=== PATIENT | female | born 1975 | race Caucasian/White ===

== ENCOUNTER 2017-02-14 08:46 | Emergency (ER) | payer MEDICAID, OTHER ==
[2017-02-14 08:49] VITALS: BMI 26.9
[2017-02-14 08:51] VITALS: TEMP 98.4
--- NOTE | 2017-02-14 09:18 | ED PDOC ---
HPI: SOB/CHF/COPD Time Seen by Provider: 02/14/17 09:04 Chief Complaint (Nursing): Respiratory Distress Chief Complaint (Provider): difficulty breathing History Per: Patient History/Exam Limitations: no limitations Onset/Duration Of Symptoms: Days, Persistent Current Symptoms Are (Timing): Still Present Associated Symptoms: Chest Pain. denies: Leg/Calf Pain, Ankle/Leg Swelling Additional Complaint(s): 41yo female with past medical history of diabetes, asthma, presents to ED with complaints shortness of breath for the past 1 week, worsening today. She states she has been taking her nebulizer treatment and ventolin pump alternating with no relief of her symptoms. She also reports episodes of vomiting and also dizziness after coughing. She denies any headache, fever, chills, dysuria. No other complaints. Of note, patient had an episode of asthma exacerbation 3 weeks ago for which she took antibiotics and steroids which provided minor relief. Past Medical History Reviewed: Historical Data, Nursing Documentation, Vital Signs Vital Signs: Last Vital Signs Temp 98.4 F 02/14/17 08:49 Pulse 103 H 02/14/17 12:05 Resp 20 02/14/17 12:05 BP 124/80 02/14/17 12:05 Pulse Ox 96 02/14/17 12:05 - Medical History PMH: Anemia, Asthma, Bipolar Disorder, Bronchitis, Depression, Diabetes, Hypercholesterolemia Denies: Chronic Kidney Disease - Surgical History Surgical History: CABG, ( x3 in . with tubal ligation 1997. ) - Family History Family History: States: Diabetes, Hypertension - Home Medications Home Medications: Ambulatory Orders Medication Instructions Recorded Albuterol 0.5% [Albuterol 0.5% 2.5 mg IH Q6 PRN #1 packet 01/16/16 Inhal Sary (2.5 mg/0.5 ml) UD] Albuterol HFA [Ventolin HFA 90 1 puff IH ASDIR #1 unit 04/14/16 mcg/actuation (8 g)] - Allergies Allergies/Adverse Reactions: Allergies Allergy/AdvReac Type Severity Reaction Status Date / Time banana Allergy RASH Verified 02/14/17 09:18 lamotrigine [From Lamictal] Allergy RASH Verified 02/14/17 09:18 Review of Systems ROS Statement: Except As Marked, All Systems Reviewed And Found Negative Constitutional: Negative for: Fever, Chills Cardiovascular: Positive for: Chest Pain (mid-sternal) Respiratory: Positive for: Cough, Shortness of Breath Gastrointestinal: Positive for: Vomiting Neurological: Negative for: Headache Physical Exam - Reviewed Nursing Documentation Reviewed: Yes Vital Signs Reviewed: Yes - Physical Exam Appears: Positive for: Non-toxic, Uncomfortable Head Exam: Positive for: ATRAUMATIC, NORMAL INSPECTION, NORMOCEPHALIC Skin: Positive for: Normal Color Eye Exam: Positive for: Normal appearance ENT: Positive for: Normal ENT Inspection Neck: Positive for: Supple Cardiovascular/Chest: Positive for: Regular Rate, Rhythm, Tachycardia Respiratory: Positive for: Normal Breath Sounds. Negative for: Wheezing Gastrointestinal/Abdominal: Positive for: Soft. Negative for: Tenderness Extremity: Positive for: Normal ROM. Negative for: Pedal Edema Neurologic/Psych: Positive for: Alert, Oriented - Laboratory Results Result Diagrams: 02/14/17 09:27 12 09:27 - ECG O2 Sat by Pulse Oximetry: 97 (RA) Pulse Ox Interpretation: Normal - Radiology X-Ray: Read By Radiologist X-Ray Interpretation: No Acute Disease - Progress Re-evaluation Time: 12:17 Condition: Re-examined, Improved, Improving,but remains with symptoms Medical Decision Making Medical Decision Making: Time: 916 Impression: Asthma exacerbation Plan: -- Labs -- EKG -- Chest x-ray -- Rapid Flu Reassess Scribe Attestation: Documented by Noemi Nixon acting as a scribe for Valerie Torre MD. Provider Attestation: All medical record entries made by the Scribe were at my direction and personally dictated by me. I have reviewed the chart and agree that the record accurately reflects my personal performance of the history, physical exam, medical decision making, and the department course for this patient. I have also personally directed, reviewed, and agree with the discharge instructions and disposition. 12.00 patient is feeling better after hydration. work up is negative for acute pathology. Will discharge. Disposition - Clinical Impression Clinical Impression: Hyperglycemia due to type 2 diabetes mellitus - Patient ED Disposition Is Patient to be Admitted: No Doctor Will See Patient In The: Office Counseled Patient/Family Regarding: Diagnosis, Need For Followup, Rx Given - Disposition Referrals: [facility] [Outside] [facility] [Outside] Disposition: Routine/Home Disposition Time: 12:18 Condition: STABLE Instructions: Diabetic Hyperglycemia (ED) Forms: [facility] ([place]) - POA Present On Arrival: None
[2017-02-14 09:34] LABS: ABG ALLEN TEST YES; ARTERIAL BLOOD GAS HCO3 25.7 mmol/L (21-28); ARTERIAL BLOOD GAS PH 7.44 (7.35-7.45); ARTERIAL BLOOD GAS PO2 76 mm/Hg (80-100)
[2017-02-14 09:38] LABS: EOS # 0.7 K/uL (0.0-0.7); MEAN PLATELET VOLUME 8.8 fl (7.2-11.7)
[2017-02-14 09:57] LABS: BASO # 0.1 K/uL (0.0-0.2); BASO % 0.8 % (0.0-2.0); EOS % 7.9 % (0.0-4.0); HEMATOCRIT 39.6 % (34.0-47.0); LYMPH # 1.5 K/uL (1.0-4.3); MEAN CELL VOLUME 77.3 fl (81.0-99.0); MEAN CORPUSCULAR HEMOGLOBIN 25.6 pg (27.0-31.0); MEAN CORPUSCULAR HGB CONC 33.1 g/dL (33.0-37.0); MONO # 0.6 K/uL (0.0-0.8); MONO % 6.3 % (0.0-10.0); NEUT # 6.4 K/uL (1.8-7.0); NRBC % 0.2 % (0.0-0.0); RED CELL DISTRIBUTION WIDTH 13.9 % (11.5-14.5); WHITE BLOOD COUNT 9.3 K/uL (4.8-10.8)
[2017-02-14 11:11] LABS: ALB/GLOB RATIO 1.2 (1.0-2.1); ALKALINE PHOSPHATASE 117 U/L (38-126); ALT/SGPT 26 U/L (9-52); AST/SGOT 18 U/L (14-36); BILIRUBIN,TOTAL 0.5 mg/dl (0.2-1.3); BLOOD UREA NITROGEN 14 mg/dl (7-17); CALCIUM 9.5 mg/dL (8.4-10.2); CARBON DIOXIDE 21 mmol/L (22-30); CHLORIDE 101 mmol/L (98-107); GFR AFRICAN-AMERICAN > 60; GLUCOSE,RANDOM 435 mg/dL (65-105); POTASSIUM 4.2 MMOL/L (3.6-5.0); SODIUM 135 mmol/l (132-148); TOTAL PROTEIN 7.5 G/DL (6.3-8.2)
--- NOTE | 2017-02-14 11:34 | RAD ---
HISTORY: dyspnea COMPARISON: No prior. TECHNIQUE: Chest PA and lateral FINDINGS: LUNGS: No active pulmonary disease. PLEURA: No significant pleural effusion identified. No pneumothorax apparent. CARDIOVASCULAR: Normal. OSSEOUS STRUCTURES: No significant abnormalities. VISUALIZED UPPER ABDOMEN: Normal. OTHER FINDINGS: None. IMPRESSION: No active disease.
[2017-02-14 12:06] VITALS: BP 124/80; PULSE 103; RESP 20
[2017-02-14 12:21] VITALS: O2SAT 97
--- NOTE | 2017-02-17 17:39 | CARD ---
APPROVED REPORT EKG Measurement Heart [id number] <Conclusion> Sinus tachycardia Otherwise normal ECG
== END 2017-02-14 12:45 | disposition home or self-care (01) ==
LOC: H.ER 08:46
DX: E11.65 Type 2 diabetes mellitus with hyperglycemia (principal); E78.00 Pure hypercholesterolemia, unspecified; F31.9 Bipolar disorder, unspecified; J44.9 Chronic obstructive pulmonary disease, unspecified; J45.901 Unspecified asthma with (acute) exacerbation; Z95.1 Presence of aortocoronary bypass graft

== ENCOUNTER 2017-02-28 09:12 | Emergency (ER) | payer OTHER ==
[2017-02-28 09:38] VITALS: BMI 25.5
[2017-02-28] MEDS ORDERED: Albuterol-Ipratrop 3 mg / 0.5 (3 ml) UD INH STA ×3 (10:12)
[2017-02-28] MEDS ORDERED: Albuterol-Ipratrop 3 mg / 0.5 (3 ml) UD ONE (10:21)
--- NOTE | 2017-02-28 11:23 | ED PDOC ---
HPI: SOB/CHF/COPD Time Seen by Provider: 02/28/17 09:48 Chief Complaint (Nursing): Respiratory Distress Chief Complaint (Provider): Cough, congestion, wheeze History Per: Patient History/Exam Limitations: no limitations Onset/Duration Of Symptoms: Days Current Symptoms Are (Timing): Still Present Associated Symptoms: denies: Fever, Chills, Chest Pain Additional Complaint(s): 41yo female with history of asthma, presents to ED with complaints of cough, congestion and wheezing for the past 1 week. Patient states she has been using her Albuterol nebulizer at home but has ran out of her inhaler. She denies any associated fevers and chest pain. Patient states she has mild asthma and does not have asthma attacks except occasionally in the winter. She has been admitted once before for Bronchitis but denies any ICU admission. Patient denies any other complaints. Past Medical History Reviewed: Historical Data, Nursing Documentation, Vital Signs Vital Signs: Last Vital Signs Temp 98.5 F 02/28/17 09:38 Pulse 97 H 02/28/17 11:25 Resp 20 02/28/17 09:38 BP 154/88 H 02/28/17 09:38 Pulse Ox 97 02/28/17 11:25 - Medical History PMH: Anemia, Asthma, Bipolar Disorder, Bronchitis, Depression, Diabetes, Hypercholesterolemia Denies: Chronic Kidney Disease - Surgical History Surgical History: ( x3 in . with tubal ligation 1997. ) - Family History Family History: States: Diabetes, Hypertension - Social History Current smoker - smoking cessation education provided: No Ex-Smoker (has not smoked in the last 12 months): No Alcohol: None Drugs: Denies - Home Medications Home Medications: Ambulatory Orders Medication Instructions Recorded Albuterol 0.5% [Albuterol 0.5% 2.5 mg IH Q6 PRN #1 packet 02/28/17 Inhal Sary (2.5 mg/0.5 ml) UD] Albuterol HFA [Ventolin HFA 90 1 puff IH ASDIR #1 unit 02/28/17 mcg/actuation (8 g)] Fluticasone/Salmeterol 250/50 1 dsk IH BID #1 inh 02/28/17 [Advair Diskus] Promethazine/Codeine 5 ml PO Q6 PRN #50 ml 02/28/17 [Phenergan/Codeine Oral Syrup] predniSONE [predniSONE Tab] 60 mg PO DAILY 5 Days tab 02/28/17 - Allergies Allergies/Adverse Reactions: Allergies Allergy/AdvReac Type Severity Reaction Status Date / Time banana Allergy RASH Verified 02/14/17 09:18 lamotrigine [From Lamictal] Allergy RASH Verified 02/14/17 09:18 Review of Systems ROS Statement: Except As Marked, All Systems Reviewed And Found Negative Constitutional: Negative for: Fever ENT: Positive for: Nose Congestion Cardiovascular: Negative for: Chest Pain Respiratory: Positive for: Cough, Shortness of Breath, Wheezing Physical Exam - Reviewed Nursing Documentation Reviewed: Yes Vital Signs Reviewed: Yes - Physical Exam Appears: Positive for: Non-toxic, No Acute Distress Head Exam: Positive for: ATRAUMATIC, NORMAL INSPECTION, NORMOCEPHALIC Skin: Positive for: Normal Color Eye Exam: Positive for: EOMI, PERRL Neck: Positive for: Supple Cardiovascular/Chest: Positive for: Regular Rate, Rhythm. Negative for: Murmur Respiratory: Positive for: Normal Breath Sounds. Negative for: Wheezing, Respiratory Distress Gastrointestinal/Abdominal: Positive for: Normal Exam, Soft. Negative for: Tenderness Extremity: Positive for: Normal ROM. Negative for: Pedal Edema, Deformity, Swelling Neurologic/Psych: Positive for: Alert, Oriented - ECG ECG: Positive for: Interpreted By Me, Viewed By Me ECG Rhythm: Positive for: Normal QRS, Normal ST Segment, Sinus Rhythm. Negative for: ST/T Changes Rate: 97 O2 Sat by Pulse Oximetry: 97 (RA) Pulse Ox Interpretation: Normal - Progress Re-evaluation Time: 13:00 Condition: Re-examined, Improved Nebulizer Treatments/Peak Flow - Duonebs Number of Bronchodilator Doses given?: 3 - Steroid Treatment Steroid: IV - Clinical Response Clinical Response: Improved Medical Decision Making Medical Decision Making: Impression: Asthma exacerbation Plan: -- EKG -- Duoneb x 3 -- Solumedrol 125 mg IVP Reassess Scribe Attestation: Documented by Noemi Nixon acting as a scribe for Florin Jasso MD. Provider Attestation: All medical record entries made by the Scribe were at my direction and personally dictated by me. I have reviewed the chart and agree that the record accurately reflects my personal performance of the history, physical exam, medical decision making, and the department course for this patient. I have also personally directed, reviewed, and agree with the discharge instructions and disposition. Disposition - Clinical Impression Clinical Impression: Asthma exacerbation - Patient ED Disposition Is Patient to be Admitted: No Doctor Will See Patient In The: Office Counseled Patient/Family Regarding: Studies Performed, Diagnosis, Need For Followup - Disposition Referrals: [facility] [Outside] Disposition: Routine/Home Disposition Time: 13:19 Condition: GOOD Additional Instructions: Take your medications as instructed. Follow up with your PCP in 2-3 days. Prescriptions: Albuterol 0.5% [Albuterol 0.5% Inhal Sary (2.5 mg/0.5 ml) UD] 2.5 mg IH Q6 PRN # 1 packet PRN Reason: Shortness Of Breath Albuterol HFA [Ventolin HFA 90 mcg/actuation (8 g)] 1 puff IH ASDIR #1 unit Fluticasone/Salmeterol 250/50 [Advair Diskus] 1 dsk IH BID #1 inh predniSONE [predniSONE Tab] 60 mg PO DAILY 5 Days tab Promethazine/Codeine [Phenergan/Codeine Oral Syrup] 5 ml PO Q6 PRN #50 ml PRN Reason: Cough Instructions: Asthma (ED)
[2017-02-28 13:28] VITALS: BP 125/78; PULSE 78; RESP 17; TEMP 97; O2SAT 98
--- NOTE | 2017-03-03 09:18 | CARD ---
APPROVED REPORT EKG Measurement Heart [id number] <Conclusion> Normal sinus rhythm Normal ECG
== END 2017-02-28 13:35 | disposition home or self-care (01) ==
LOC: H.ER 09:12
DX: J45.901 Unspecified asthma with (acute) exacerbation (principal); E11.9 Type 2 diabetes mellitus without complications; E78.00 Pure hypercholesterolemia, unspecified; F31.9 Bipolar disorder, unspecified; J44.9 Chronic obstructive pulmonary disease, unspecified; Z87.891 Personal history of nicotine dependence
CPT/HCPCS: 81025; 94150; 94640; 96374; 99282; J2930

== ENCOUNTER 2017-03-07 12:07 | Emergency (ER) | payer OTHER ==
[2017-03-07 12:08] VITALS: BMI 25.5
[2017-03-07 12:13] VITALS: BP 127/80; PULSE 113; TEMP 97; O2SAT 99
[2017-03-07 12:21] VITALS: RESP 18
[2017-03-07] MEDS ORDERED: Naproxen 500 MG TAB PO ONE (12:32)
--- NOTE | 2017-03-07 12:39 | ED PDOC ---
HPI: General Adult Time Seen by Provider: 03/07/17 12:24 Chief Complaint (Nursing): Dental Pain History Per: Patient History/Exam Limitations: no limitations Onset/Duration Of Symptoms: Days (x 2) Current Symptoms Are (Timing): Still Present Additional Complaint(s): L[place] is a 41 year old female who presents to the emergency department complaining of left sided facial pain associated with nasal congestion. Reports pain worse when bending neck forward. Further states for the past 2 weeks, she treated her "bronchitis" with albuterol treatments. Denies trauma, fever, numbness, and weakness. PMD: No Family Provider Past Medical History Reviewed: Historical Data, Nursing Documentation, Vital Signs Vital Signs: Last Vital Signs Temp 97 F L 03/07/17 12:12 Pulse 113 H 03/07/17 12:12 Resp 18 03/07/17 12:19 BP 127/80 03/07/17 12:19 Pulse Ox 99 03/07/17 12:49 - Medical History PMH: Anemia, Asthma, Bipolar Disorder, Bronchitis, Depression, Diabetes, Hypercholesterolemia Denies: Chronic Kidney Disease - Surgical History Surgical History: CABG, ( x3 in . with tubal ligation 1997. ) - Family History Family History: States: Diabetes, Hypertension - Home Medications Home Medications: Ambulatory Orders Medication Instructions Recorded Albuterol 0.5% [Albuterol 0.5% 2.5 mg IH Q6 PRN #1 packet 02/28/17 Inhal Sary (2.5 mg/0.5 ml) UD] Albuterol HFA [Ventolin HFA 90 1 puff IH ASDIR #1 unit 02/28/17 mcg/actuation (8 g)] Fluticasone/Salmeterol 250/50 1 dsk IH BID #1 inh 02/28/17 [Advair Diskus] Promethazine/Codeine 5 ml PO Q6 PRN #50 ml 02/28/17 [Phenergan/Codeine Oral Syrup] predniSONE [predniSONE Tab] 60 mg PO DAILY 5 Days tab 02/28/17 Amoxicillin/Clavulanate [Augmentin 1 tab PO Q8 #30 tab 03/07/17 500 MG-125 MG] Fluticasone Propionate [Flonase] 2 spr NS DAILY PRN #1 bottle 03/07/17 Pseudoephedrine HCl [Sudafed] 1 - 2 tab PO Q8 PRN #30 tablet 03/07/17 - Allergies Allergies/Adverse Reactions: Allergies Allergy/AdvReac Type Severity Reaction Status Date / Time banana Allergy RASH Verified 03/07/17 12:19 lamotrigine [From Lamictal] Allergy RASH Verified 03/07/17 12:19 Review of Systems ROS Statement: Except As Marked, All Systems Reviewed And Found Negative Constitutional: Negative for: Fever, Weakness Neurological: Negative for: Numbness Physical Exam - Reviewed Nursing Documentation Reviewed: Yes Vital Signs Reviewed: Yes - Physical Exam Appears: Positive for: No Acute Distress Head Exam: Positive for: ATRAUMATIC, NORMAL INSPECTION, NORMOCEPHALIC ENT: Positive for: Other (Left sided maxillary tednerness without swelling, dentation is normal, no gingival tenderness). Negative for: Pharyngeal Erythema Respiratory: Positive for: Normal Breath Sounds (Lungs clear to auscultation bilaterally) Neurologic/Psych: Negative for: Aphasia, Facial Droop - ECG O2 Sat by Pulse Oximetry: 99 (RA) Pulse Ox Interpretation: Normal Medical Decision Making Medical Decision Making: Time: 12:30 Plan: - Naproxen 500 mg PO Upon provider evaluation patient is medically stable, and requires no further treatment in the ED at this time. Patient will be discharged with Rx for Augmentin, Flonase and Sudafed. Counseling was provided and all questions were answered regarding diagnosis and need for follow up with PCP. There is agreement to discharge plan. Return if symptoms persist or worsen. Scribe Attestation: Documented by Judson Mills, acting as a scribe for Luis Felipe Ludwig PA-C Provider Scribe Attestation: All medical record entries made by the Scribe were at my direction and personally dictated by me. I have reviewed the chart and agree that the record accurately reflects my personal performance of the history, physical exam, medical decision making, and the department course for this patient. I have also personally directed, reviewed, and agree with the discharge instructions and disposition. Disposition - Clinical Impression Clinical Impression: Sinusitis - Patient ED Disposition Is Patient to be Admitted: No - Disposition Referrals: [facility] [Outside] Disposition: Routine/Home Disposition Time: 12:30 Condition: STABLE Prescriptions: Amoxicillin/Clavulanate [Augmentin 500 MG-125 MG] 1 tab PO Q8 #30 tab Fluticasone Propionate [Flonase] 2 spr NS DAILY PRN #1 bottle PRN Reason: Allergy Symptoms Pseudoephedrine HCl [Sudafed] 1 - 2 tab PO Q8 PRN #30 tablet PRN Reason: congestion Instructions: Sinusitis (ED) Forms: [facility] ([employer]) Print Language: HEBREW
== END 2017-03-07 12:40 | disposition home or self-care (01) ==
LOC: H.ER 12:07
DX: J32.9 Chronic sinusitis, unspecified (principal); E11.9 Type 2 diabetes mellitus without complications; E78.00 Pure hypercholesterolemia, unspecified; F31.9 Bipolar disorder, unspecified; J45.909 Unspecified asthma, uncomplicated; Z95.1 Presence of aortocoronary bypass graft